=== PATIENT | male | born 1960 | race Caucasian/White ===

== ENCOUNTER 2025-05-22 07:45 | Outpatient (RCR) | payer MEDICAID, SELFPAY | END 2025-09-19 23:59 | disposition home or self-care (01) | PROVIDERS: PCP Internal Medicine; Visit Provider Surgery | DX: S76.311D Strain of muscle, fascia and tendon of the posterior muscle group at thigh level, right thigh, subsequent encounter (principal); M25.561 Pain in right knee; G89.29 Other chronic pain; Z51.89 Encounter for other specified aftercare | CPT/HCPCS: 97110; 97162 ==